=== PATIENT | female | born 1980 | race Caucasian/White ===

== ENCOUNTER 2025-06-15 05:52 | Day surgery (SDC) | payer OTHER ==
[2025-06-15] VITALS (18 sets, daily range): BP systolic 95–134; BP diastolic 46–109
[~2025-06-15] VITALS: Ht 170.2 cm; Wt 101.4 kg
[~2025-06-15 05:52] MED LIST: Crutch1 EACH MISC; IBUP800 PO; LOSARTAN POTASS50 M1 PO
[2025-06-15] MEDS ORDERED: OZEMPIC0.25 MG/02 SQ (06:51)
--- NOTE | 2025-06-15 07:30 | NUR ---
06/15/25 [id number] Murguia CONFIRMED AND REVIEWED H&P, MEDCICATIONS, ALLERGIES, MEDICAL HISTORY, RESPIRATORY HISTORY, VITAL SIGNS, 3-LEAD EKG, CONSENTS, AND PHYSICIAN ORDERS. PATIENT CONFIRMS NPO STATUS AND AGREES WITH SCHEDULED PROCEDURE. MONITOR INTACT WITH CONTINUOUS PULSE OXIMETRY, CAPNOGRAPHY, 3-LEAD EKG, INTERMITTENT BP. SUPPLEMENTAL O2 TO BE TITRATED THROUGHOUT PROCEDURE TO MAINTAIN O2 SATURATION ABOVE 90%. PATIENT DETERMINED TO BE ASA APPROPRIATE FOR PROPOFOL SEDATION PRIOR TO START OF PROCEDURE BY DR. LOPEZ.
--- NOTE | 2025-06-15 08:27 | NUR ---
Patient States Post-Procedure ride home has been arranged. Discharged via wheelchair to private car for ride home. Discharge instructions reviewed with patient. Patient verbalizes understanding. Copy given to patient to take home.
== END 2025-06-15 23:05 | disposition home or self-care (01) ==
LOC: ORSCMMR 05:52
PROVIDERS: Surgery
PROC: 0DBN8ZX Excision of Sigmoid Colon, Via Natural or Artificial Opening Endoscopic, Diagnostic (ICD-10-PCS; principal; 2025-06-15 07:30)
DX: Z12.11 Encounter for screening for malignant neoplasm of colon (principal); K63.5 Polyp of colon; Z80.0 Family history of malignant neoplasm of digestive organs; I10 Essential (primary) hypertension; E66.812 Obesity, class 2; Z68.35 Body mass index [BMI] 35.0-35.9, adult; Z79.899 Other long term (current) drug therapy; Z87.891 Personal history of nicotine dependence
CPT/HCPCS: 88305; J2704; J7120